=== PATIENT | male | born 1965 | race Caucasian/White ===

== ENCOUNTER → 2016-10-04 | Day surgery (SDC) | payer BC ==
[~2016-10-04] MED LIST: AMBIEN PO; HYDROCODONE/APA1 T16 PO; IBUPROFEN800 MG PO; KEFLEX500 M1 PO; NAPROXEN PO; OMEPRAZOLE40 M1 PO; XANAX1 MG PO
--- NOTE | ~2016-10-04 | OR ---
Unit #: [id number] #: [id number] Patient: PRITESH LOW [id number] [address] [address] [id number] MR#: [id number] NAME: PRITESH LOW ROOM: Date of Procedure: 10/04/2016 Admission Date: 10/04/2016 Surgeon: Zach Hill M.D. : 1965 Attending Physician: Zach Hill M.D. Primary Care Physician: Ramesh Hodges M.D. OPERATIVE REPORT SERVICES PROVIDED 1. Therapeutic lumbar epidural steroid injection. 2. Fluoroscopy of the lumbosacral spine. 3. IV sedation to facilitate the above. PREOPERATIVE DIAGNOSES 1. Degenerative disk disease at L5-S1 with grade 1 anterolisthesis L4-S1 with bilateral L5 nerve root impingement with facet arthropathy L3 through S1 levels. 2. Other medical history including gastroesophageal reflux disease, depression, anxiety disorder. POSTOPERATIVE DIAGNOSES 1. Degenerative disk disease at L5-S1 with grade 1 anterolisthesis L4-S1 with bilateral L5 nerve root impingement with facet arthropathy L3 through S1 levels. 2. Other medical history including gastroesophageal reflux disease, depression, anxiety disorder. PROCEDURE PERFORMED Lumbar epidural steroid injection using fluoroscopy. FOLLOW-UP/REVIEW OF SYSTEMS/PHYSICAL EXAM Mr. Low is here for a lumbar epidural injection to address the lumbar radiculopathy in the L5 distributions. He has responded well to interventional treatment. He denies side effects with medication management. He has no medical contraindications to the procedure performed as follows with his consent INDICATIONS/COMMENTS AND CONSENTS/STATEMENT OF MEDICAL NECESSITY The patient's current medications, allergies and vital signs are documented in the nursing assessment. The risks and benefits of the intervention(s) were discussed with the patient in detail including but not limited to infection, bleeding, meningitis, steroid induced side-effects, nerve damage, paralysis, spinal headaches, neuritis, persistent or worsening pain. The patient wishes to proceed. A separate pain assessment is also in the chart. I have reviewed all of this and have reviewed this with the patient. A current History and Physical is also attached. DESCRIPTION OF PROCEDURE(S) 1. Monitoring and positioning: After appropriate discussions it was Unit #: [id number] #: [id number] Patient: PRITESH LOW decided to perform the procedure under local anesthesia with supplemental intravenous sedation. Vital signs were monitored in pre, intra and post-procedure phase. Monitoring included EKG, non-invasive BP, pulse oximetry, and temperature. These are documented and were stable. Appropriate supports and restraints were used. 2. Sedation: : A total of 2 mg Versed and 100 mcg of fentanyl was administered. 3. Lumbar epidural injection/fluoroscopy: The patient was placed in the prone position. Positional supports were used. Fluoroscopy of the lumbar spine was performed. Sterile prep and drape with carried out with ChloraPrep. Local anesthesia was with infiltrated with 3 mL of preservative-free 1% Lidocaine. Once anesthesia was established, a 22-gauge Tuohy epidural needle was inserted at the L5-S1 level epidurally, using an interlaminar approach, loss of resistance to saline technique, and with fluoroscopic guidance. Needle placement tested negative for subarachnoid and intravascular placement. An intra-operative epidurogram was now performed. Intra-operative epidurogram: 1 mL(s) of Isovue-M300 was injected through the epidural needle under continuous fluoroscopy. The dye was seen to spread to L5 in the cephalad direction, and to S1 in the caudal direction. The spread of the dye was uniform. 1 mL of preservative-free normal saline was used to irrigate the dye off the epidural space. There was no intravascular or intrathecal spread of contrast. A lumbar epidural steroid injection was now performed using total of 3 mL of solution containing 0.2% bupivacaine and 80 mg of Depo-Medrol in 2 mL. Fluoroscopic imaging confirmed spread of medication. The needle was then removed intact. The skin was washed off. Prep solution and dressings were applied at the injection site. The patient tolerated the procedure well. The patient was then observed in the recovery area for 30 minutes. RESULTS The patient had a consistent block with the dose of local anesthetic used. Pain relief was satisfactory. There were no complications or side effects. DISCHARGE CONDITION 1. Patient was discharged in satisfactory condition accompanied by a family member. 2. Post-procedure instructions were given. PLAN(S) The patient will return to the clinic in 2 months for re-assessment and office visit. I thank the patient's referring physician for the opportunity to participate in the care of this patient. Please do not hesitate to call for any questions regarding this patient s pain management. Dictated by... Sid Cheung/wenceslao TD: 10/04/2016 08:46 JOB #: [id number] Unit #: [id number] #: [id number] Patient: PRITESH LOW OPERATIVE REPORT Page 1 of 1 X Zach Hill MD PROCEDURE OPERATIVE NOTE
== END | disposition home or self-care (01) ==
LOC: CCSC 07:19
DX: M51.37 Other intervertebral disc degeneration, lumbosacral region (principal); M43.17 Spondylolisthesis, lumbosacral region; M46.87 Other specified inflammatory spondylopathies, lumbosacral region; Z98.1 Arthrodesis status; K21.9 Gastro-esophageal reflux disease without esophagitis; F41.8 Other specified anxiety disorders
CPT/HCPCS: J1040; J2250; J3010